=== PATIENT | male | born 1960 | race Caucasian/White ===

== ENCOUNTER 2023-10-06 18:51 | Inpatient (IN) | payer OTHER, SELFPAY ==
[2023-10-06] VITALS (13 sets, daily range): BP systolic 100–137; BP diastolic 59–82; BMI 23.1; BMI 22.6
--- NOTE | 2023-10-06 14:45 | ED.GENMED ---
History of Present Illness
General
Chief Complaint: Abdominal Symptoms
Source: patient and spouse
Exam Limitations: none
Time Seen by Provider: 10/06/23 14:05
Nursing documentation reviewed up to this point in time: agreed with
Travel History
Have you had any contact with someone who has COVID-19?: No
Do you have any symptoms of coronavirus? Fever > 100 degrees, chills, cough, shortness of breath, sore throat, loss of taste or smell, muscle aches, or headache?: No
History of Present Illness
History of Present Illness:
The patient is a 63-year-old man with a past medical history of metastatic lung cancer. His reports that he has not had recent chemo but had a new medication given to him by infusion during the beginning of this week. She reports that over
the last 2 days, his doctors report he is become anemic and they are not sure why. In addition, she reports he is not functioning well at home and has had multiple episodes of vomiting and diarrhea. In addition, she reports he has had lower
abdominal pain. At this time, patient reports that he has no abdominal pain at all. He does report mild nausea. They deny fever, chest pain or shortness of breath.
I spoke to patient's oncologist from [place] who reports that they are worried about an upper GI bleed. He reports that his describes coffee-ground emesis
Past History
Past History
ED Past Medical History: Cancer, HTN and Hypercholesterolemia
ED Past Surgical History: Other
Social History
Tobacco: Other
Alcohol: Other
Drug: None
Personal:
Living: with family
Employment: Other
Family History
Family History: Other
Review of Systems
Review of Systems
Allergies reviewed?: Yes
All Other Systems: ROS reviewed and negative except as documented in HPI and ROS
Constitutional: Reports fatigue
EENT: Reports no symptoms
Respiratory: Reports no symptoms
Cardiac: Reports no symptoms
ABD/GI: Reports abdominal pain, nausea, vomiting and diarrhea
: Reports no symptoms
Musculoskeletal: Reports no symptoms
Skin: Reports no symptoms
Neurological: Reports no symptoms
Endocrine: Reports no symptoms
Hematologic/Lymphatic: Reports no symptoms
Psychiatric: Reports no symptoms
Phy Exam
Physical Exam
Physical Exam:
Physical Exam
General: Chronically ill-appearing. Pale
Neck: supple. no meningeal signs. normal psoterior pharynx
Heart: s1/s2 regular rate and rhythm,
Lungs: no acute respiratory distress. clear bilaterally
Abdomen: normal bowel sounds. not tender. no CVAT. Abdomen is soft and nondistended and nontender throughout. On rectal exam, stool appears brown and is trace positive
Neuro: alert and oriented. no focal neurological deficits
Skin: no rash
Psychiatric: well kept. interactive and cooperative
Extremities: no edema. no calf tenderness. negative homans. good distal pulses
Course
Orders/Labs/Results
Orders:
Orders
10/06/23 14:41
IV Insert/Care/Rem.- Treatment PRN
10/06/23 14:44
Ondansetron Injectable [Zofran] 4 mg IV NOW STA
10/06/23 14:53
Electrocardiogram (*1) Urgent
Reason for Study: Fatigue / Weakness
EKG- Treatment ONCE
10/06/23 Dinner
Clear Liquid
10/06/23 15:11
Type+Screen Urgent
Complete Blood Count/With Diff Urgent
Comprehensive Metabolic Panel Urgent
Lactic Acid Urgent
Lipase Urgent
PTT Urgent
Prothrombin Time Urgent
10/06/23 15:20
HYDROmorphone [Dilaudid] 1 mg IV NOW STA
10/06/23 16:17
* Blood Bank Products Urgent
[facility] Orders: Anand
Blood Bank Products: *Packed RBC Leuko(PRBC's)
Quantity: 1
Transfuse Today: Yes
Reason: Anemia
IV Insert/Care/Rem.- Treatment PRN
10/06/23 16:18
Pantoprazole [Protonix IV] 80 mg IV NOW STA
10/06/23 16:19
Pantoprazole 80 mg/100 ml Nss [Protonix] 80 mg in 100 ml IV NOW
10/06/23 16:52
Admit/Transfer Patient As Directed
Co-Sign Provider:
Level of Care: Inpatient admission
Assign to:: Medical/Surgical
Physician / Group: xiao
Diagnosis: UGIB
Reason for Hospitalization: UGIB
Expected length of stay greater than two midnights?: Yes
ELOS- Estimated Length of Stay in days: 2
I certify the patient meets the requirements for IP care: Yes
Code Status As Directed
Resuscitation Status: Do not resuscitate
Reached after discussion with pt or family/Healthcare POA: Yes
10/06/23 16:54
DNR Bracelet Application ONCE
10/06/23 18:32
Urinalysis Reflex To Culture Urgent
10/06/23 20:00
0.9% Sodium Chloride [Nss (Preservative Free)] 10 ml IV BID
Pantoprazole [Protonix IV] 40 mg IV BID
Abnormal Lab Results
10/06/23
15:11
WBC 12.8 H 10^3/uL
(4.8-10.8)
RBC 2.37 L 10^6/uL
(4.70-6.10)
Hgb 7.9 L g/dL
(13.0-18.0)
Hct 23.0 L %
(39.0-52.0)
MCV 97.0 H fL
(80.0-94.0)
MCH 33.3 H pg
(27.0-31.0)
RDW 15.9 H %
(11.5-14.5)
Abs Immat Gran (auto) 0.1 H 10^3/uL
(0-0.05)
Absolute Neuts (auto) 11.9 H 10^3/uL
(1.4-6.5)
Absolute Lymphs (auto) 0.2 L 10^3/uL
(1.2-3.4)
Immature Gran % 0.6 H %
(0-0.5)
Neutrophils % 93.2 H %
(42.2-75.2)
Lymphocytes % 1.2 L %
(20.5-51.1)
APTT 23.3 L Sec
(23.4-35.0)
Sodium 130 L mmol/L
(135-145)
BUN 21 H mg/dl
(9-20)
Lactic Acid 2.1 H mmol/L
(0.7-2.0)
Calcium 8.0 L mg/dl
(8.4-10.2)
Total Protein 5.2 L g/dl
(6.3-8.2)
Albumin 2.9 L g/dl
(3.5-5.0)
Crossmatch IS Only See Detail
10/06/23 15:11
10/06/23 15:11
Vital Signs
Initial and Last Documented VS:
Initial Vital Signs
Temp Pulse Resp BP Pulse Ox
98.5 F 110 20 105/82 100
10/06/23 12:50 10/06/23 12:50 10/06/23 12:50 10/06/23 12:50 10/06/23 12:50
Last Documented Vital Signs
Temp Pulse Resp BP Pulse Ox
98.2 F 79 14 102/68 100
10/06/23 18:53 10/06/23 18:53 10/06/23 18:53 10/06/23 18:53 10/06/23 14:15
MDM/Problems Addressed
Differential Diagnosis Includes:
Acute blood loss anemia, dehydration, UTI
MDM/Problems Addressed:
Patient presents with acute anemia on blood work on the last 2 days, as well as acute on chronic fatigue, and acute nausea, vomiting and diarrhea
Chronic conditions affecting care:
Stage IV lung cancer
*Pulse Oximetry
Patient hypoxic: no
*EKG
Interpreted by ED Provider?: Yes
Interpretation: abnormal
Comparison EKG: no comparison EKG present
Rate: normal
Rhythm: sinus
[place]: normal axis
Interval: normal interval
QRS Pattern: normal QRS and right bundle branch block
Ischemia: non-specific ST changes
*Online Marketing Coordinator Interpretation
Rate: normal
Interpretation: normal
Rhythm: sinus
*Critical Care Note
Total Time (30-74mins, 75-104mins- exclusive of procedures): 35 min
comment:
35 minutes of critical care given to the patient including frequent reassessments of his nausea, reviewing his blood work, speaking to his oncologist at [place], speaking about the blood transfusion as well as recurrently speaking to his
Data Reviewed
Source: patient and other (Patient's oncologist from [place] over the phone)
Update Note
Update Note:
4:18 PM patient's gave written consent and understands risks and benefits of blood transfusion.
ED Attending Note
-
Portions of this chart may have been created with voice recognition software.� Occasional wrong word or��sound alike� substitutions may have occurred due to the inherent limitations of voice recognition software.
Discharge Plan
Departure
Patient Disposition: Admit
Date of Disposition: 10/06/23
Time of Disposition: 15:56
Admit to: Med/Surg
Presentation/result/management discussed w/ accepting MD/DO: Hospitalist
Patient with high blood pressure during this ER visit?: Yes
Condition: Good
Discharge Problem:
Acute anemia, Abdominal pain, Nausea & vomiting, Adult failure to thrive, Acute dehydration
Interventions
Interventions:
*Risk Screen - Suicide Last Done: 10/06/23 12:50
*General Assessment Last Done: 10/06/23 12:50
*Neglect/Abuse Screening Last Done: 10/06/23 15:14
*ED COVID-19 Vaccine History Last Done: 10/06/23 12:50
UP-Nuaotw-Brhsemecqh Assessment Last Done: 10/06/23 18:50
[2023-10-06] MEDS: ZOFRAN 4 MG IV (15:11)
[2023-10-06 15:24] LABS: % Basophils 0.1 % (0-2); % Eosinophils 0.1 % (0-6); % Immature Granulocytes 0.6 % (0-0.5); % Lymphocytes 1.2 % (20.5-51.1); % Monocytes 4.8 % (1.7-9.3); % Neutrophils 93.2 % (42.2-75.2); Absolute Immature Granulocytes 0.1 10^3/uL (0-0.05); Absolute Lymphocytes 0.2 10^3/uL (1.2-3.4); Absolute Monocytes 0.6 10^3/uL (0.1-0.6); Absolute Neutrophils 11.9 10^3/uL (1.4-6.5); Hemoglobin 7.9 g/dL (13.0-18.0); Mean Corp Hgb Conc. 34.3 g/dL (33.0-37.0); Mean Corpuscular Hgb 33.3 pg (27.0-31.0); Mean Platelet Volume 9.7 fL (7.4-10.4); Nucleated Red Blood Cells % 0 % (-); Platelet Count 203 10^3/uL (130-400); Red Blood Cell Count 2.37 10^6/uL (4.70-6.10); Red Cell Dist. Width 15.9 % (11.5-14.5); White Blood Cell Count 12.8 10^3/uL (4.8-10.8)
[2023-10-06] MEDS: DILAUDID 1 MG IV (15:27)
[2023-10-06 15:34] LABS: Lactic Acid 2.1 mmol/L (0.7-2.0)
[2023-10-06 15:35] LABS: ALT (SGPT) 45 U/L (0-50); AST (SGOT) 25 U/L (17-59); Albumin 2.9 g/dl (3.5-5.0); Alkaline Phosphatase 85 U/L (38-126); Blood Urea Nitrogen 21 mg/dl (9-20); Carbon Dioxide 26 mmol/L (22-30); Chloride 103 mmol/L (98-107); Estimated Creatinine Clearance 93 ml/min; Glucose 79 mg/dl (70-99); Lipase 25 U/L (23-300); Potassium 3.7 mmol/L (3.5-5.1); Sodium 130 mmol/L (135-145); Total Bilirubin 0.4 mg/dl (0.2-1.3); Total Protein 5.2 g/dl (6.3-8.2); eGFR > 60.00
[2023-10-06 15:36] LABS: APTT 23.3 Sec (23.4-35.0); INR 1.01; PT 13.1 Sec (11.4-14.6)
--- NOTE | 2023-10-06 17:00 | HPS.HSE ---
Addendum entered and electronically signed by Joseph Ibarra MD 10/06/23 18:34:
Check urinalysis due to burning with urination.
Addendum entered and electronically signed by Joseph Ibarra MD 10/06/23 18:34:
Patient on clears. Restarted senna.
Original Note:
Family Physician
-
Family Physician: * NONE
Chief Complaint
-
cofree ground vomiting
History of Present Illness
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 Patient is usually constipated and his
last bowel movement 3 days ago. He has chronic abdominal pain due to adrenal metastases but today the pain was worse. Currently he denies any abdominal pain. He denies any chest pain or acid reflux or shortness of breath.
Patient has a history of lung cancer diagnosed several years ago with metastases to spine, bone, brain and adrenal glands. He has received radiation to all these locations previously. He has most recently received a single dose of radiation to his
back a few days ago. He has received radiation to his right adrenal gland within the past year.
He is currently on immunotherapy infusion which he received last week at [facility]. There was consideration to admit him at that time due to anemia for blood transfusion. There was plan for patient to have blood transfusion.
He smokes a few cigarettes a day at this point. He denies any alcohol use. No marijuana use.
Medical History
Past Medical History
Past Medical History: Reports Other ( stage IV lung cancer with metastases to spine, bone, brain, adrenal glands and back, hypertension, hypercholesteremia)
Past Surgical History: Reports None
Social History
Tobacco: Smoker
Alcohol: None
Drug: None
Family History
Family History: Not pertinent
Allergies / Home Medications
Allergies reflects when Allergies were last updated in [facility].
Home Medications with original date entered in [facility]
Allergy/Medication List:
Allergies
Allergy/AdvReac Type Severity Reaction Status Date / Time
IV contrast Allergy Unknown Uncoded 10/06/23 12:50
Home Medications
acetaminophen 325 mg tablet (Tylenol) 325 mg PO Q4HPRN PRN mild pain 10/06/23
amivantamab-vmjw 50 mg/mL intravenous solution (Rybrevant) 7,500 mg IV Q3W 10/06/23
hydrocortisone 20 mg tablet 20 mg PO QPM 10/06/23
hydrocortisone 20 mg tablet 40 mg PO DAILY 10/06/23
lactulose 10 gram/15 mL oral solution 10 g PO DAILYPRN PRN constipation 10/06/23
magnesium oxide 400 mg PO BID 10/06/23
oxycodone 15 mg tablet 15 mg PO Q4HPRN PRN severe pains 10/06/23
pregabalin 50 mg capsule (Lyrica) 50 mg PO BIDPRN PRN severe pain 10/06/23
sennosides 8.6 mg tablet (senna) 8.6 mg PO DAILY 10/06/23
testosterone 50 mg/mL intramuscular solution 80 mg IM FR 10/06/23
Review of Systems
-
History Source: Patient
A 12 point ROS was completed and negative except as noted: Yes
Constitutional: Reports No Symptoms
EENT: Reports No Symptoms
Respiratory: Reports No Symptoms
Cardiac: Reports No Symptoms
Abdomen/GI: Reports See HPI
: Reports No Symptoms
Musculoskeletal: Reports No Symptoms
Skin: Reports No Symptoms
Neurological: Reports No Symptoms
Endocrine: Reports No Symptoms
Hematologic/Lymphatic: Reports No Symptoms
Psych: Reports No Symptoms
Physical Exam
Vital Signs
Vital Signs
Temp Pulse Resp BP Pulse Ox
98.5 F 110 20 105/82 100
10/06/23 12:50 10/06/23 12:50 10/06/23 12:50 10/06/23 12:50 10/06/23 12:50
Physical Exam
General: Well Developed, Well Nourished and No Apparent Distress
HEENT: NormoCephalic, Moist mucous membranes and Atraumatic
Respiratory: Clear
Cardiac: S1/S2 and Regular Rhythm; No Murmur or Rub
GI: Soft, Non Tender, Non Distended and Normal Bowel Sounds; No Organomegaly
Rectal: Deferred by Provider
Musculoskeletal: No Clubbing, No Cyanosis and No Edema
Skin: No Rash
Neuro: Nonfocal/grossly intact
Laboratory Results
-
10/06/23 15:11
10/06/23 15:11
Laboratory Results
PT 13.1 Sec (11.4-14.6) 10/06/23 15:11
INR 1.01 10/06/23 15:11
APTT 23.3 Sec (23.4-35.0) L 10/06/23 15:11
Lactic Acid 2.1 mmol/L (0.7-2.0) H 10/06/23 15:11
Total Bilirubin 0.4 mg/dl (0.2-1.3) 10/06/23 15:11
AST 25 U/L (17-59) 10/06/23 15:11
ALT 45 U/L (0-50) 10/06/23 15:11
Alkaline Phosphatase 85 U/L (38-126) 10/06/23 15:11
Lipase 25 U/L (23-300) 10/06/23 15:11
Data Reviewed
-
Lab Data: Labs Reviewed by me
Old Records: Reviewed
Impression/Plan
-
IMPRESSION:
PLAN:
# Acute anemia suspect acute blood loss anemia secondary to upper GI bleeding
-Hemoglobin 7.9 from reportedly 10 within past weeks
-heme occult trace positive for blood
-Sinus tachycardia
-N.p.o.
-1 unit of blood
-Protonix drip
-GI consulted
# Hyponatremia secondary to poor p.o. intake/GI loss/SIADH
-Continue to monitor
Stage IV lung cancer with metastasis to spine, brain, adrenal glands, back status post radiation
-Recently underwent radiation to back
-Patient currently on immunotherapy at [facility]
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
-Blood pressure normal at this time
-Increase hydrocortisone to 80 mg in the day, 40 mg at night, make require further stress dose steroids
Chronic constipation
-hold senna
Chronic pain secondary to malignancy
-Continue methadone, oxycodone, pregabalin
Prior history of hypertension
-No longer on hypertensive medication
Hypercholesterolemia
Active smoker
-Smokes 1 to 2 cigarettes a day
DNR/DNI
DVT prophylaxis�SCD
N.p.o.
--- NOTE | 2023-10-06 18:14 | CON.GI ---
Consultation
-
Date/Time Consultation Requested: 10/06/2023
Date/Time Consultation Performed: 10/06/2023
Performing Provider: Erwin Martinez
Reason for Consultation: anemia, concern for UGIB
Medical History
Chief Complaint / HPI
Chief Complaint: anemia, concern for UGIB
History of Present Illness:
The patient is a 63-year-old male with h/o stage IV lung cancer with metastases to spine, bone, brain, adrenal glands and back, HTN, hypercholesteremia who p/w multiple vomiting and diarrhea.� Patient had acute onset of multiple vomiting today. His
initial vomiting was nonbloody. He vomited about 7-10 times which became brownish resembling possible coffee-ground toward the end. During his vomiting he also had multiple episodes of diarrhea as per . He denies NSAID use. No prior EGD. He
received multiple radiation therapy for his metastatic lung cancer. Currently he is on immunotherapy infusion, being treated at [facility].
Past Medical History
Past Medical History: Cancer, HTN and Other
Past Surgical History: None
Social History
Tobacco: Smoker
Alcohol: None
Family History
Family History: Reviewed & Not Pertinent
Allergies / Home Medications
Allergy/AdvReac Type Severity Reaction Status Date / Time
IV contrast Allergy Unknown Uncoded 10/06/23 12:50
Medication Instructions Recorded
acetaminophen 325 mg tablet 325 mg PO Q4HPRN PRN mild pain 10/06/23
(Tylenol)
amivantamab-vmjw 50 mg/mL 7,500 mg IV Q3W 10/06/23
intravenous solution (Rybrevant)
hydrocortisone 20 mg tablet 20 mg PO QPM 10/06/23
hydrocortisone 20 mg tablet 40 mg PO DAILY 10/06/23
lactulose 10 gram/15 mL oral 10 g PO DAILYPRN PRN constipation 10/06/23
solution
magnesium oxide 400 mg PO BID 10/06/23
oxycodone 15 mg tablet 15 mg PO Q4HPRN PRN severe pains 10/06/23
pregabalin 50 mg capsule (Lyrica) 50 mg PO BIDPRN PRN severe pain 10/06/23
sennosides 8.6 mg tablet (senna) 8.6 mg PO DAILY 10/06/23
testosterone 50 mg/mL 80 mg IM FR 10/06/23
intramuscular solution
Review of Systems
Vital Signs
Temp Pulse Resp BP Pulse Ox
98.5 F 76 11 106/65 100
10/06/23 12:50 10/06/23 17:30 10/06/23 17:30 10/06/23 17:00 10/06/23 14:15
Physical Exam
Exam
General: Well Developed and Well Nourished
HEENT: Normocephalic
Respiratory: Clear
Cardiac: S1/S2
GI: Soft, Non Tender and Non Distended
Results
WBC 12.8 10^3/uL (4.8-10.8) H 10/06/23 15:11
Hgb 7.9 g/dL (13.0-18.0) L 10/06/23 15:11
Hct 23.0 % (39.0-52.0) L 10/06/23 15:11
MCV 97.0 fL (80.0-94.0) H 10/06/23 15:11
Plt Count 203 10^3/uL (130-400) 10/06/23 15:11
Absolute Neuts (auto) 11.9 10^3/uL (1.4-6.5) H 10/06/23 15:11
PT 13.1 Sec (11.4-14.6) 10/06/23 15:11
INR 1.01 10/06/23 15:11
APTT 23.3 Sec (23.4-35.0) L 10/06/23 15:11
Sodium 130 mmol/L (135-145) L 10/06/23 15:11
Potassium 3.7 mmol/L (3.5-5.1) 10/06/23 15:11
Chloride 103 mmol/L (98-107) 10/06/23 15:11
Carbon Dioxide 26 mmol/L (22-30) 10/06/23 15:11
BUN 21 mg/dl (9-20) H 10/06/23 15:11
Creatinine 0.8 mg/dL (0.7-1.3) 10/06/23 15:
Calcium 8.0 mg/dl (8.4-10.2) L 10/06/23 15:
Total Bilirubin 0.4 mg/dl (0.2-1.3) 10/06/23 15:
AST 25 U/L (17-59) 10/06/23 15:11
ALT 45 U/L (0-50) 10/06/23 15:11
Alkaline Phosphatase 85 U/L (38-126) 10/06/23 15:
Lipase 25 U/L (23-300) 10/06/23 15:11
Diagnostic Image Results:
Prior GI Procedures:
EGD:
Colonoscopy:
Assessment / Plan
-
The patient is a 63-year-old male with h/o stage IV lung cancer with metastases to spine, bone, brain, adrenal glands and back, HTN, hypercholesteremia who p/w multiple vomiting and diarrhea.
Impression / Rec:
1. Vomiting, possible coffee ground emesis - had acute onset of non-bloody vomitus, which after multiple vomiting became brownish resembling coffee ground. No hematemesis. No NSAIDs use. This is most consistent with MW tear. Hemodynamically
stable, Hgb is 7.9 on admission, which is close to his baseline (per past several weeks) as per . Given his wide metastatic lung ca, endo eval to r/o gastric metastatic lesion is reasonable. Pt was started on PPI infusion, would change this to
protonix 40 mg IV BID. CLD for now. Plan for EGD Monday. Monitor Hgb.
Total Time Spent with Patient (in minutes): 55
-
-
Thank you for consultation and allowing me to participate in the patient's care. Please call the campaign consultant GI physician during the after hours with any questions or concerns.
[2023-10-06 20:52] LABS: Iron 33 ug/dl (49-181)
[2023-10-06 21:18] LABS: Percent Saturation 13 % (20-50); Total Iron Binding Capacity 246 ug/dl (261-462)
[2023-10-06] MEDS: ROXICODONE 15 MG PO (22:10)
[2023-10-06] MEDS: PROTONIX IV 40 MG IV (22:11)
[2023-10-06] MEDS: NSS (PRESERVATIVE FREE) 10 ML IV (22:11)
[2023-10-06] MEDS: HYDROCORTONE/CORTEF 40 MG PO (22:12)
[2023-10-06] MEDS: MAG-TAB SR 84 MG PO (22:12)
[2023-10-06 22:41] LABS: Folate 7.2 ng/ml (2.76-20); Vitamin B12 533 pg/ml (239-931)
[2023-10-06 23:22] LABS: Urine Albumin Negative (Neg - Trace); Urine Bilirubin Negative (Negative); Urine Character Clear (Clear); Urine Color Yellow; Urine Glucose Negative (Negative); Urine Ketone Negative (Negative); Urine Leukocyte Negative (Negative); Urine Nitrite Negative (Negative); Urine Occult Blood Negative (Negative); Urine Urobilinogen Negative (Neg - 1+)
[2023-10-07] MEDS: DOLOPHINE 10 MG PO ×2 (00:10→21:55)
--- NOTE | 2023-10-07 00:31 | PTCARENOTE ---
Patient arrived from the ED via stretcher at approximately 2014. Patient ambulated from stretcher to bed x1 assist. Patient AAOx3, forgetful. Patient w/ blood running upon arrival to unit - see TAR for completion of blood administration. VSS as
documented. Assessment as documented. Patient oriented to room. Bed in lowest position. Call shen within reach.
[2023-10-07] MEDS: ROXICODONE 15 MG PO ×2 (06:05→15:35)
[2023-10-07 07:30] VITALS: BP 111/71
[2023-10-07] MEDS: HYDROCORTONE/CORTEF 80 MG PO (08:25)
[2023-10-07] MEDS: DOLOPHINE 20 MG PO (08:25)
[2023-10-07] MEDS: MAG-TAB SR 84 MG PO ×2 (08:25→21:53)
[2023-10-07] MEDS: NSS (PRESERVATIVE FREE) 10 ML IV ×2 (08:25→21:54)
[2023-10-07] MEDS: SENOKOT 8.59999999999999964 MG PO (08:25)
[2023-10-07] MEDS: PROTONIX IV 40 MG IV ×2 (08:26→21:54)
[2023-10-07 08:43] LABS: % Eosinophils 0.4 % (0-6); % Immature Granulocytes 0.2 % (0-0.5); % Lymphocytes 3.1 % (20.5-51.1); % Monocytes 5.6 % (1.7-9.3); % Neutrophils 90.7 % (42.2-75.2); Absolute Lymphocytes 0.2 10^3/uL (1.2-3.4); Absolute Monocytes 0.3 10^3/uL (0.1-0.6); Absolute Neutrophils 4.7 10^3/uL (1.4-6.5); Hematocrit 24.4 % (39.0-52.0); Hemoglobin 8.3 g/dL (13.0-18.0); Mean Corpuscular Hgb 33.3 pg (27.0-31.0); Nucleated Red Blood Cells % 0.4 % (-); Platelet Count 164 10^3/uL (130-400); Red Blood Cell Count 2.49 10^6/uL (4.70-6.10); Red Cell Dist. Width 16.6 % (11.5-14.5); White Blood Cell Count 5.2 10^3/uL (4.8-10.8)
[2023-10-07 08:46] LABS: Lactic Acid 0.7 mmol/L (0.7-2.0)
[2023-10-07 09:48] LABS: ALT (SGPT) 42 U/L (0-50); AST (SGOT) 22 U/L (17-59); Albumin 2.6 g/dl (3.5-5.0); Alkaline Phosphatase 73 U/L (38-126); Blood Urea Nitrogen 23 mg/dl (9-20); Carbon Dioxide 28 mmol/L (22-30); Chloride 98 mmol/L (98-107); Estimated Creatinine Clearance 105 ml/min; Glucose 73 mg/dl (70-99); Potassium 4.1 mmol/L (3.5-5.1); Sodium 130 mmol/L (135-145); Total Bilirubin 0.5 mg/dl (0.2-1.3); Total Protein 4.8 g/dl (6.3-8.2); eGFR > 60.00
--- NOTE | 2023-10-07 10:26 | W.PN.HOSP.TC ---
Today's Communication/Plan
-
monitor hbg
diet per GI
continue IV PPI
for EGD mon
Assessment / Plan
Assessment / Plan
# Acute anemia suspect acute blood loss anemia secondary to upper GI bleeding
Possible Radha-Harrison tear versus other
-Hemoglobin 7.9 from reportedly 10 within past weeks in ER
-heme occult trace positive for blood
-S/p 1 unit PRBC, continue monitoring hemoglobin
-No further episode of nausea and vomiting overnight
-GI evaluated and patient started on clear liquid diet. Possible medical steroid versus other causes need to rule out with underlying metastatic lung cancer.
-Patient on IV Protonix twice daily. Continue
# Hyponatremia
-Suspected euvolemic with ADH excess with underlying malignancy and bleed problem
-Continue to monitor
#Stage IV lung cancer with metastasis to spine, brain, adrenal glands, back status post radiation
-Recently underwent radiation to back
-Patient currently on immunotherapy at [facility]
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
-Blood pressure normal at this time
-Increase hydrocortisone to 80 mg in the day, 40 mg at night, make require further stress dose steroids
#Chronic constipation
-hold senna
#Chronic pain secondary to malignancy
-Continue methadone, oxycodone, pregabalin
#Prior history of hypertension
-No longer on hypertensive medication
#Hypercholesterolemia
#Active smoker
-Smokes 1 to 2 cigarettes a day
DNR/DNI
DVT prophylaxis�SCD
Patient requesting to advance diet. Discussed with GI PA
Anticipated Discharge: > 48 hours
Subjective/Interval History
-
Date of Service: October 07, 2023
Resting comfortably in bed
Denies any new nausea or vomiting overnight
Not voicing any complains
Objective Data
-
Labs:
Laboratory Results
10/07/23
08:23
WBC 5.2
Hgb 8.3 L
Hct 24.4 L
Plt Count 164
Sodium 130 L
Potassium 4.1
Chloride 98
Carbon Dioxide 28
BUN 23 H
Creatinine 0.7
Glucose 73
Calcium 8.0 L
Total Bilirubin 0.5
AST 22
ALT 42
Alkaline Phosphatase 73
Vital Signs:
Vital Signs
Temp Pulse Resp BP Pulse Ox
97.8 F 68 16 111/71 100
10/07/23 07:30 10/07/23 07:30 10/07/23 07:30 10/07/23 07:30 10/07/23 07:30
I&O
10/06/23 10/07/23 10/08/23
06:59 06:59 07:59
Intake Total 250 / 250
Balance 250 / 250
Review of Systems
-
Respiratory: Reports No Symptoms
Cardiac: Reports No Symptoms
Abdomen/GI: Reports No Symptoms
Physical Exam
-
General: Appears Chronically Ill; Negative Appears in Distress
HEENT: Oxygen
Respiratory: Clear to Auscultation and Other (Port a cath in place)
Cardiac: Regular Rhythm and S1/S2; Negative Murmur
GI: Soft and Nontender
Neuro: Awake, Alert and Oriented
--- NOTE | 2023-10-07 10:42 | W.PN.GI.CBS2 ---
Today's Communication / Plan
-
ok for reg diet, r/o infectious diarrhea, egd Monday
Assessment / Plan
-
The patient is a 63-year-old male with h/o stage IV lung cancer with metastases to spine, bone, brain, adrenal glands and back, HTN, hypercholesteremia who p/w multiple vomiting and diarrhea. Had acute onset of non-bloody vomitus, which after
multiple vomiting became brownish resembling coffee ground. No hematemesis. No NSAIDs use. This is most consistent with MW tear. Hemodynamically stable, Hgb is 7.9 on admission, which is close to his baseline (per past several weeks) as per
. Given his wide metastatic lung ca, endo eval to r/o gastric metastatic lesion is reasonable.
No further vomiting. Had few episodes of watery diarrhea, no melena. Hgb stable 8.3 today. Will advance diet to regular. R/o infectious etiology for diarrhea. Continue with PPI IV. EGD Monday.
Total Time Spent with Patient (in minutes): 35
Subjective
Subjective
Date of Service: October 07, 2023
No further vomiting, having some diarrhea
Objective
Data Reviewed
Laboratory Data:
Laboratory Results
10/07/23 08:23
10/07/23 08:23
Laboratory Results
PT 13.1 Sec (11.4-14.6) 10/06/23 15:11
INR 1.01 10/06/23 15:11
APTT 23.3 Sec (23.4-35.0) L 10/06/23 15:11
Total Bilirubin 0.5 mg/dl (0.2-1.3) 10/07/23 08:23
AST 22 U/L (17-59) 10/07/23 08:23
ALT 42 U/L (0-50) 10/07/23 08:23
Alkaline Phosphatase 73 U/L (38-126) 10/07/23 08:23
Lipase 25 U/L (23-300) 10/06/23 15:11
Vital Signs and I&O:
Vital Signs
Temp Pulse Resp BP Pulse Ox
97.8 F 68 16 111/71 100
10/07/23 07:30 10/07/23 07:30 10/07/23 07:30 10/07/23 07:30 10/07/23 07:30
I&O
10/06/23 10/07/23 10/08/23
06:59 06:59 07:59
Intake Total 250 / 250
Balance 250 / 250
--- NOTE | 2023-10-07 13:26 | CM ---
CM following re: discharge planning.
Reviewed pt's chart, met with pt
Pt is a 63 year old male, admitted with primary dx of GI Bleed.
Pt reports he lives with spouse 2SH, 2 steps to enter, has 2 supportive children. 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 Pt stated he 'tries to go back to work and tries to drive'.
PCP: pt stated he left his PCP because PCP does not prescribe pain meds and he left pain management MD because he did not prescribe pain meds. Pt stated he does not have PCP and looking for to have one who will be able to prescribe pain meds.
Pharamcy: [facility]
D/C plan: home with anticipated no needs. Spouse to transport at discharge.
CM will follow with discharge plan updates as hospitalization progresses
[2023-10-07 15:20] VITALS: BP 105/64
--- NOTE | 2023-10-07 15:32 | PTCARENOTE ---
Patient received his missed dose of testosterone IM injection, from home.
[2023-10-07] MEDS: ROXICODONE 30 MG PO (18:14)
[2023-10-07] MEDS: HYDROCORTONE/CORTEF 40 MG PO (18:15)
[2023-10-07 23:30] VITALS: BP 114/65
[2023-10-08] MEDS: ROXICODONE 30 MG PO (00:10)
[2023-10-08 06:14] LABS: Hematocrit 25.8 % (39.0-52.0); Hemoglobin 8.8 g/dL (13.0-18.0); Mean Corp Hgb Conc. 34.1 g/dL (33.0-37.0); Mean Corpuscular Hgb 32.2 pg (27.0-31.0); Mean Corpuscular Volume 94.5 fL (80.0-94.0); Mean Platelet Volume 9.6 fL (7.4-10.4); Platelet Count 177 10^3/uL (130-400); Red Blood Cell Count 2.73 10^6/uL (4.70-6.10); White Blood Cell Count 6.7 10^3/uL (4.8-10.8)
[2023-10-08 07:05] VITALS: BP 119/81
[2023-10-08 07:45] LABS: Blood Urea Nitrogen 18 mg/dl (9-20); Calcium 7.9 mg/dl (8.4-10.2); Carbon Dioxide 26 mmol/L (22-30); Chloride 101 mmol/L (98-107); Estimated Creatinine Clearance 105 ml/min; Glucose 82 mg/dl (70-99); Potassium 4.1 mmol/L (3.5-5.1); Sodium 128 mmol/L (135-145); eGFR > 60.00
[2023-10-08] MEDS: NSS (PRESERVATIVE FREE) 10 ML IV ×2 (08:52→19:52)
[2023-10-08] MEDS: MAG-TAB SR 84 MG PO ×2 (08:52→19:53)
[2023-10-08] MEDS: PROTONIX IV 40 MG IV ×2 (08:52→19:53)
[2023-10-08] MEDS: HYDROCORTONE/CORTEF 80 MG PO (08:52)
[2023-10-08] MEDS: SENOKOT 8.59999999999999964 MG PO (08:52)
[2023-10-08] MEDS: DOLOPHINE 20 MG PO (08:53)
--- NOTE | 2023-10-08 11:05 | W.PN.HOSP.TC ---
Today's Communication/Plan
-
adjust pain meds
check urine sodium/osm
monitor hbg
Assessment / Plan
Assessment / Plan
# Acute anemia suspect acute blood loss anemia secondary to upper GI bleeding
Possible Radha-Harrison tear versus other
-Hemoglobin 7.9 from reportedly 10 within past weeks in ER
-heme occult trace positive for blood
-S/p 1 unit PRBC, continue monitoring hemoglobin
-No further episode of nausea and vomiting overnight
-GI evaluated and patient started on clear liquid diet. Possible medical steroid versus other causes need to rule out with underlying metastatic lung cancer.
-Patient on IV Protonix twice daily. Continue
# Hyponatremia
-Suspected euvolemic with ADH excess with underlying malignancy and bleed problem
-Na down to 128 today, check urine na/osm
-fluid restriction ordered
-if trends down further will need samsca dose.
# Acute toxic metabolic encephalopathy
-Likely from medication and hyponatremia related
-Hold Lyrica. Dose of oxycodone decreased to 20 mg every 4 hours.
-Family is concerned about anxiety, patient not able to handle Ativan. Giving Xanax 0.25 mg every 8 hour
-Patient also metastatic brain disease, no official report available although per spouse recent outpt MRI showed stable findings
#Stage IV lung cancer with metastasis to spine, brain, adrenal glands, back status post radiation
-Recently underwent radiation to back
-Patient currently on immunotherapy at [place], discussed with spouse who is planning to call [facility] physicians tomorrow to discuss prognosis.
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
-Blood pressure normal at this time
-Increase hydrocortisone to 80 mg in the day, 40 mg at night, make require further stress dose steroids
#Chronic constipation
-hold senna
#Chronic pain secondary to malignancy
-Continue methadone, oxycodone, pregabalin
#Prior history of hypertension
-No longer on hypertensive medication
#Hypercholesterolemia
#Active smoker
-Smokes 1 to 2 cigarettes a day
DNR/DNI
DVT prophylaxis�SCD
Discussed with spouse possible need of repeat brain imaging continued to have multiple confusion. Adjusting medication as above. Patient continues to demand pain medication although not in any visible pain, will try to limit dose. I have
encouraged spouse to talk to [facility] oncologist regarding overall prognosis is I do not have all the information necessary to discuss GOC.
Total time spent : 53 mins
I personally saw and examined the patient.
I have reviewed all diagnostic interpretations and treatment plans as written.
Time includes patient management by me, time spent at the patients bedside, time to review lab and imaging results, discussing patient care, documentation in the medical record, and time spent with the family or caregiver and discussing care plan
with RN/Consultants.
Anticipated Discharge: 24 - 48 hours
Subjective/Interval History
-
Date of Service: October 08, 2023
seen and examined
patient disoriented and no other issues
continues to have pain
Objective Data
-
Labs:
Laboratory Results
10/08/23
06:02
WBC 6.7
Hgb 8.8 L
Hct 25.8 L
Plt Count 177
Sodium 128 L
Potassium 4.1
Chloride 101
Carbon Dioxide 26
BUN 18
Creatinine 0.7
Glucose 82
Calcium 7.9 L
Vital Signs:
Vital Signs
Temp Pulse Resp BP Pulse Ox
97.8 F 86 16 119/81 100
10/08/23 07:05 10/08/23 07:05 10/08/23 07:05 10/08/23 07:05 10/08/23 07:05
I&O
10/07/23 10/08/23 10/09/23
05:59 06:59 06:59
Intake Total
Balance
Review of Systems
-
Respiratory: Reports No Symptoms
Cardiac: Reports No Symptoms
Abdomen/GI: Reports No Symptoms
Physical Exam
-
General: Negative Appears in Distress
HEENT: Oxygen
Respiratory: Clear to Auscultation and Other (Port a cath in place)
Cardiac: Regular Rhythm and S1/S2; Negative Murmur
GI: Soft and Nontender
Neuro: Awake, Alert and No Motor Deficits
[2023-10-08 11:20] VITALS: BMI 22.6
--- NOTE | 2023-10-08 12:43 | W.PN.GI.CBS2 ---
Today's Communication / Plan
-
EGD tomorrow
Assessment / Plan
-
The patient is a 63-year-old male with h/o stage IV lung cancer with metastases to spine, bone, brain, adrenal glands and back, HTN, hypercholesteremia who p/w multiple vomiting and diarrhea. Had acute onset of non-bloody vomitus, which after
multiple vomiting became brownish resembling coffee ground. No hematemesis. No NSAIDs use. This is most consistent with MW tear. Hemodynamically stable, Hgb is 7.9 on admission, which is close to his baseline (per past several weeks) as per
. Given his wide metastatic lung ca, endo eval to r/o gastric metastatic lesion is reasonable.
Tolerating reg diet. Hgb 8.8 today. No BM today. No further vomiting. EGD tomorrow.
Total Time Spent with Patient (in minutes): 35
Subjective
Subjective
Date of Service: October 08, 2023
Diarrhea stopped
Objective
Data Reviewed
Laboratory Data:
Laboratory Results
10/08/23 06:02
10/08/23 06:02
Laboratory Results
PT 13.1 Sec (11.4-14.6) 10/06/23 15:11
INR 1.01 10/06/23 15:11
APTT 23.3 Sec (23.4-35.0) L 10/06/23 15:11
Total Bilirubin 0.5 mg/dl (0.2-1.3) 10/07/23 08:23
AST 22 U/L (17-59) 10/07/23 08:23
ALT 42 U/L (0-50) 10/07/23 08:23
Alkaline Phosphatase 73 U/L (38-126) 10/07/23 08:23
Lipase 25 U/L (23-300) 10/06/23 15:11
Vital Signs and I&O:
Vital Signs
Temp Pulse Resp BP Pulse Ox
97.8 F 86 16 119/81 100
10/08/23 07:05 10/08/23 07:05 10/08/23 07:05 10/08/23 07:05 10/08/23 07:05
I&O
10/07/23 10/08/23 10/09/23
05:59 06:59 06:59
Intake Total
Balance
[2023-10-08] MEDS: ROXICODONE 20 MG PO ×2 (12:58→17:17)
[2023-10-08] MEDS: ALPRAZOLAM ODT 0.25 MG PO (15:00)
[2023-10-08 15:30] VITALS: BP 108/64
[2023-10-08 16:41] LABS: Osmolality Urine 548 mOsm/kg (300-900)
[2023-10-08 16:44] LABS: Urine Sodium 38 mmol/L (30-90)
[2023-10-08] MEDS: HYDROCORTONE/CORTEF 40 MG PO (17:17)
[2023-10-08] MEDS: DOLOPHINE 10 MG PO (21:26)
[2023-10-08 23:14] VITALS: BP 117/69
[2023-10-09 05:38] LABS: Hematocrit 26.9 % (39.0-52.0); Hemoglobin 9.2 g/dL (13.0-18.0); Mean Corp Hgb Conc. 34.2 g/dL (33.0-37.0); Mean Corpuscular Hgb 32.6 pg (27.0-31.0); Mean Corpuscular Volume 95.4 fL (80.0-94.0); Mean Platelet Volume 10.2 fL (7.4-10.4); Platelet Count 174 10^3/uL (130-400); Red Blood Cell Count 2.82 10^6/uL (4.70-6.10); Red Cell Dist. Width 15.2 % (11.5-14.5); White Blood Cell Count 6.3 10^3/uL (4.8-10.8)
[2023-10-09 06:03] LABS: Blood Urea Nitrogen 17 mg/dl (9-20); Calcium 8.3 mg/dl (8.4-10.2); Carbon Dioxide 29 mmol/L (22-30); Chloride 98 mmol/L (98-107); Estimated Creatinine Clearance 105 ml/min; Glucose 89 mg/dl (70-99); Sodium 132 mmol/L (135-145); eGFR > 60.00
[2023-10-09 07:15] VITALS: BP 137/87
[2023-10-09] MEDS: HYDROCORTONE/CORTEF 80 MG PO (07:33)
[2023-10-09] MEDS: PROTONIX IV 40 MG IV (07:33)
[2023-10-09] MEDS: FLUSH (NSS) 1 FLUSH IV (07:33)
[2023-10-09] MEDS: NSS (PRESERVATIVE FREE) 10 ML IV (07:33)
[2023-10-09] MEDS: DOLOPHINE 20 MG PO (07:33)
[2023-10-09] MEDS: SENOKOT 8.59999999999999964 MG PO (07:34)
[2023-10-09] MEDS: MAG-TAB SR 84 MG PO (07:34)
--- NOTE | 2023-10-09 09:07 | W.PN.HOSP.TC ---
Today's Communication/Plan
-
Cleared by GI for discharge today
Assessment / Plan
Assessment / Plan
# Acute anemia suspect acute blood loss anemia secondary to upper GI bleeding
Possible Radha-Harrison tear versus other
-Hemoglobin 7.9 from reportedly 10 within past weeks in ER
-heme occult trace positive for blood
-S/p 1 unit PRBC, hemoglobin improved to 8.3, and is currently 9.2 today
-No further episode of nausea and vomiting overnight
-Currently on Protonix 40 mg IV twice daily
-Status post EGD on 10/08 showing duodenal ulcer with clean base, biopsy, no masses
-Medically stable for discharge on pantoprazole 40 mg twice a day
-No NSAIDs, follow-up with GI at [place]
# Hyponatremia
-Suspected euvolemic with ADH excess with underlying malignancy and bleed problem
-Na 132 today, was 128
-Will discharge on fluid restriction, needs repeat BMP to check sodium level 1 week
# Acute toxic metabolic encephalopathy
-Likely from medication and hyponatremia related
-Hold Lyrica. Dose of oxycodone decreased to 20 mg every 4 hours.
-Family is concerned about anxiety, patient not able to handle Ativan. Giving Xanax 0.25 mg every 8 hour
-Patient also metastatic brain disease, no official report available although per spouse recent outpt MRI showed stable findings
-Resolved today
#Stage IV lung cancer with metastasis to spine, brain, adrenal glands, back status post radiation
-Recently underwent radiation to back
-Patient currently on immunotherapy at [place], discussed with spouse who is planning to call [facility] physicians to discuss prognosis.
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
-Blood pressure normal at this time
-Increased hydrocortisone to 80 mg in the day, 40 mg at night, make require further stress dose steroids
#Chronic constipation
-resume senna upon discharge
#Chronic pain secondary to malignancy
-Continue methadone, oxycodone, pregabalin
#Prior history of hypertension
-No longer on hypertensive medication
#Hypercholesterolemia
#Active smoker
-Smokes 1 to 2 cigarettes a day
DNR/DNI
DVT prophylaxis�SCD
Physical Exam
General: No acute distress
HEENT: Normocephalic, Atraumatic, EOMI, MMM
Respiratory: Clear to Auscultation bilaterally
Cardiac: Normal S1/S2, Regular Rate and Rhythm
GI: Soft, Nontender, Nondistended, Normal Bowel Sounds
Extremities: No Clubbing, Cyanosis, or Edema
Neuro: Nonfocal/Grossly Intact
Psych: Calm, Cooperative
Derm: No Visible lesions
.
Anticipated Discharge: Today
Subjective/Interval History
-
Date of Service: October 09, 2023
Patient denies abdominal pain. No black or bloody stools. No nausea, no vomiting. No lightheadedness no dizziness.
Objective Data
-
Labs:
Laboratory Results
10/09/23
04:58
WBC 6.3
Hgb 9.2 L
Hct 26.9 L
Plt Count 174
Sodium 132 L
Potassium 4.0
Chloride 98
Carbon Dioxide 29
BUN 17
Creatinine 0.7
Glucose 89
Calcium 8.3 L
Vital Signs:
Vital Signs
Temp Pulse Resp BP Pulse Ox
97.8 F 82 16 137/87 100
10/09/23 07:15 10/09/23 07:15 10/09/23 07:15 10/09/23 07:15 10/09/23 07:15
I&O
10/08/23 10/09/23 10/10/23
06:59 06:59 06:59
Intake Total 1200 / 1200
Balance 1200 / 1200
[2023-10-09 10:15] VITALS: BP 125/78; BP 142/82
[2023-10-09 10:18] VITALS: BP 125/78
[2023-10-09 10:30] VITALS: BP 137/91
--- NOTE | 2023-10-09 13:41 | W.DCSUMMARY ---
Discharge Summary
Discharge Data
Date of Admission: 10/06/23
Date of Discharge: 10/09/23
-
Pending Results: No
Hospital Course
Discharge diagnosis:
Acute upper GI bleed
Duodenal ulcer
Hyponatremia due to syndrome of inappropriate ADH secretion
Acute toxic metabolic encephalopathy
Stage IV lung cancer with DISEASE to the spine, brain, adrenal glands, back status post radiation
Radiation-induced adrenal insufficiency
Chronic constipation
Chronic pain with opioid dependency secondary to lung cancer
Cigarette nicotine dependency
Consults: GI
CXR:
There is a right internal jugular Uxtnoe-p-Bjrr catheter in place. Distal tip in the distal third superior vena cava. No pneumothorax.
Linear parenchymal stranding in the left upper lobe, with slight superior retraction of the left hilum, likely related to reported history of lung carcinoma.
The lungs are otherwise clear.
No pleural effusion.
The heart is normal in size. No evidence of congestive heart failure.
10/09/2023 EGD:
�� � The examined esophagus was normal.
�� � No gross lesions were noted in the entire examined stomach.
�� � One cratered duodenal ulcer with a clean ulcer base (Efrain Class III)
�� � was found in the first portion of the duodenum. The lesion was 14 mm in
�� � largest dimension. No obvious mass lesion seen. The edge of ulcer was
�� � biopsied with a cold forceps for histology to rule out possible
�� � metastatic lesion.
�� � The duodenal bulb and second portion of the duodenum were normal.
Hospital course:
63-year-old male with a past medical history of stage IV lung cancer with metastases to spine, bone, brain, adrenal glands and back, adrenal sufficiency, and cigarette nicotine dependency was admitted for 1 episode of bloody emesis. Patient was
seen in conjunction with GI. He was treated with Protonix drip.
His initial hemoglobin was 7.9, He was tachycardic. He was transfused 1 unit of packed red blood cells, his hemoglobin improved to 8.3. He did not have any more episodes of black coffee-ground emesis. His hemoglobin was trended, and increased to
9.2 on the day of discharge.
Patient had an EGD on 10/09/2023, showing a nonbleeding duodenal ulcer that was biopsied. GI recommends pantoprazole 40 mg twice a day. He tolerated his diet.
Patient's hospital course was complicated by acute toxic metabolic encephalopathy. This is likely due to his chronic high dose opioid usage as well as acute on chronic hyponatremia secondary to syndrome of inappropriate ADH secretion due to his
lung cancer. He was treated with a fluid restriction, and his sodium improved to 132 on the day of discharge. He has been instructed to continue with fluid restriction upon discharge. His opioids were slightly decreased while he was in the
hospital. His mentation returned to baseline.
Patient is medically stable and cleared by GI for discharge. He needs to follow-up with GI in the office. He states he will follow-up with GI at [place]. He needs a repeat BMP in 1 week with his primary care doctor or his oncologist at [place].
Disposition: Home self-care
Discharge planning: Required 40 minutes
Discharge Plan
-
Patient Disposition: Home (Routine Discharge)
Discharge Diagnosis/Procedures: Acute blood loss anemia, duodenal ulcer, stage IV lung cancer, confusion, hyponatremia, chronic pain with opioid dependency
Condition: Fair
Diet: Regular and Supplements
Additional Diets: Please take Ensure or boost or protein supplement of your choice twice a day
Activity: As tolerated
Blood Work: BMP in 1 week with either your doctor at [place] or your primary care doctor
Activity Restrictions/Additional Instructions:
Please avoid all hcrm-fpx-thohsie aspirin or NSAID medications such as ibuprofen, naproxen, Aleve, Motrin, Advil.
These medications may cause your ulcer to bleed.
Please follow-up with your oncologist and the GI doctor at [place].
Please also follow-up with your primary care doctor in 1 week.
Referrals:
NONE,* [Family Provider] -
Prescriptions:
New
pantoprazole 40 mg Tablet,Delayed Release (Dr/Ec)
40 mg PO BID Qty: 60 0RF
Continued
sennosides [senna] 8.6 mg Tablet
17.2 mg PO BID
Patient Comments:
Cannot take past dinner d/t nausea/vomiting while taking pill
oxycodone 15 mg tablet
30 mg PO Q4HPRN PRN (Reason: severe pains)
Patient Comments:
Patient states he takes 1-2 tablets as needed every 4 hours
hydrocortisone 20 mg Tablet
40 mg PO DAILY
lactulose 10 gram/15 mL Solution
10 g PO DAILYPRN PRN (Reason: constipation)
pregabalin [Lyrica] 50 mg Capsule
50 mg PO BIDPRN PRN (Reason: severe pain)
magnesium oxide 400 mg magnesium Tablet
400 mg PO BID
Rybrevant 50 mg/mL Solution
7,500 mg IV Q3W
testosterone 50 mg/mL Solution
50 mg IM FR
methadone 10 mg Tablet
20 mg PO Daily
methadone 10 mg Tablet
10 mg PO HS
hydrocortisone 20 mg Tablet
20 mg PO QPM Qty: 0 0RF
Changed
acetaminophen [Tylenol] 325 mg Tablet
650 mg PO Q4HPRN PRN (Reason: mild pain) Qty: 0 0RF
Discharge Orders:
Discharge Patient (As Directed); Ordered 10/09/23
Ordered By: Ramone Olson
Discharge Date and Time
Discharge Date/Time: 10/09/23 15:18
--- NOTE | 2023-10-09 14:42 | CM ---
Reviewed the chart notes. Patient's spouse at bedside to transport patient home today. CM continues to be available to patient/family and is monitoring medical plan for needs at discharge.
Plan: Discharge to home today. No needs identified at this time.
[2023-10-09 15:05] VITALS: BP 133/83
--- NOTE | 2023-10-09 16:33 | CM ---
Reviewed the chart notes. Patient's spouse at bedside to transport the patient home today. CM continues to be available to patient/family and is monitoring medical plan for needs at discharge.
Plan: Discharge to home today with no additional needs being identified.
== END 2023-10-09 15:18 | disposition home or self-care (01) | DRG 383 ==
LOC: 2 NORTH 18:51
PROVIDERS: Hospitalist; Nurse Practitioner Gerontology; ADMITTING PHYSICIAN Hospitalist; ATTENDING PHYSICIAN Family Medicine; CONSULT PHYSICIAN Internal Medicine Gastroenterology; EMERGENCY PHYSICIAN Emergency Medicine
PROC: 30233N1 Transfusion of Nonautologous Red Blood Cells into Peripheral Vein, Percutaneous Approach (ICD-10-PCS; 2023-10-06)
PROC: 0DB98ZX Excision of Duodenum, Via Natural or Artificial Opening Endoscopic, Diagnostic (ICD-10-PCS; 2023-10-09)
DX: K26.9 Duodenal ulcer, unspecified as acute or chronic, without hemorrhage or perforation (principal); G92.8 Other toxic encephalopathy; D62 Acute posthemorrhagic anemia; E22.2 Syndrome of inappropriate secretion of antidiuretic hormone; C79.51 Secondary malignant neoplasm of bone; E27.40 Unspecified adrenocortical insufficiency; C34.90 Malignant neoplasm of unspecified part of unspecified bronchus or lung; F11.20 Opioid dependence, uncomplicated; K22.6 Gastro-esophageal laceration-hemorrhage syndrome; Z66 Do not resuscitate; D50.9 Iron deficiency anemia, unspecified; E86.0 Dehydration; R62.7 Adult failure to thrive; F17.210 Nicotine dependence, cigarettes, uncomplicated; K59.09 Other constipation; G89.3 Neoplasm related pain (acute) (chronic); E78.00 Pure hypercholesterolemia, unspecified; Y84.2 Radiological procedure and radiotherapy as the cause of abnormal reaction of the patient, or of later complication, without mention of misadventure at the time of the procedure
CPT/HCPCS: 88305; 36430; 71046; 80048; 80053; 81003; 82607; 82728; 82746; 83540; 83550; 83605; 83690; 83935; 84300; 85025; 85027; 85610; 85730; 86850; 86900; 86901; 86920; 93005; 96374; 96375; 99291; P9016

== ENCOUNTER 2023-12-12 21:52 | Inpatient (IN) | payer OTHER, SELFPAY ==
[2023-12-12 19:04] VITALS: BP 61/50
--- NOTE | 2023-12-12 19:12 | ED.GENMED ---
History of Present Illness
General
Chief Complaint: Seizure
Source: patient
Time Seen by Provider: 12/12/23 19:05
Travel History
Have you had any contact with someone who has COVID-19?: Unable to Answer
Do you have any symptoms of coronavirus? Fever > 100 degrees, chills, cough, shortness of breath, sore throat, loss of taste or smell, muscle aches, or headache?: Unable to Answer
History of Present Illness
History of Present Illness:
63-year-old male with known metastatic disease to the brain lungs spine adrenals presents from home via EMS where he receiving home hospice care. They presented here for seizures that have been ongoing all day. I am told family is en route.
Patient unable to provide any information.
Past History
Past History
ED Past Medical History: Cancer, HTN and Hypercholesterolemia
ED Past Surgical History: Other
Social History
Tobacco: Other
Alcohol: Other
Drug: None
Personal:
Living: with family
Employment: Other
Family History
Family History: Other
Phy Exam
Physical Exam
Physical Exam:
General: Cachectic appearing unresponsive male
HEENT: Normocephalic slight upward gaze pupils pinpoint bite truman on tongue
Heart: Regular no audible murmurs
Lungs: Slightly tachypneic
Extremities: No cyanosis
Neurologic exam: Does not follow commands responsive only to painful stimuli
Course
Orders/Labs/Results
Orders:
Orders
12/12/23 19:25
Lorazepam [Ativan] 2 mg .ROUTE .STK-MED ONE
12/12/23 19:27
Lorazepam [Ativan] 1 mg IV NOW STA
Vital Signs
Initial and Last Documented VS:
Initial Vital Signs
Temp Pulse Resp BP Pulse Ox
98.1 F 119 10 61/50 98
12/12/23 19:04 12/12/23 19:04 12/12/23 19:04 12/12/23 19:04 12/12/23 19:04
Last Documented Vital Signs
Temp Pulse Resp BP Pulse Ox
98.1 F 119 10 61/50 98
12/12/23 19:04 12/12/23 19:04 12/12/23 19:04 12/12/23 19:04 12/12/23 19:04
MDM/Problems Addressed
Differential Diagnosis Includes:
Patient presents with out of hospital DNR paperwork. He is from home on hospice with no metastatic disease having seizures. He is hypotensive here. He does have a Dilaudid NETWORK DEVELOPER pump.
*Critical Care Note
Total Time (30-74mins, 75-104mins- exclusive of procedures): Not Applicable
Update Note
Update Note:
and daughter now on room. Expectations and goals addressed. They realize end-of-life is imminent. They want him to go comfortably. Patient was given Ativan here as he had another seizure. Will continue to give Dilaudid. Will monitor. If
need be admit to inpatient hospice for comfort measures.
Reexamined patient. Still unresponsive. Family still in room. I suspect end-of-life is imminent. He was given Ativan here. Will admit to hospital for comfort measures only and inpatient hospice.
ED Attending Note
-
Portions of this chart may have been created with voice recognition software.� Occasional wrong word or��sound alike� substitutions may have occurred due to the inherent limitations of voice recognition software.
Discharge Plan
Departure
Patient Disposition: Admit
Date of Disposition: 12/12/23
Time of Disposition: 20:36
Admit to: Med/Surg
Presentation/result/management discussed w/ accepting MD/DO: Hospitalist
Discharge Problem:
Seizure
Referrals:
NONE,* [Family Provider] -
Interventions
Interventions:
*Risk Screen - Suicide Last Done: 12/12/23 19:04
*General Assessment Last Done: 12/12/23 19:04
*Neglect/Abuse Screening Last Done: 12/12/23 19:04
ED- Fall Risk Assessment Last Done: 12/12/23 19:30
*ED COVID-19 Vaccine History Last Done: 12/12/23 19:30
ED- Cardiac Assessment Last Done: 12/12/23 19:30
ED- Neurological Assessment Last Done: 12/12/23 19:30
ED- Pulmonary Assessment Last Done: 12/12/23 19:30
Discharge Date and Time
Print Language: ANGUILLAN
--- NOTE | 2023-12-12 19:25 | EDRN ---
Contacted Agatha ORR RN about pts R SQ port, pt arrives w it accessed and w an active infusion of pts dilaudid OFFICE SYSTEM ANALYST. Okay to use port per Agatha.
--- NOTE | 2023-12-12 19:26 | EDRN ---
Per Chinedu Yee okay to given Ativan even though hypersensitivity.
[2023-12-12] MEDS: ATIVAN 1 MG IV (19:30)
--- NOTE | 2023-12-12 19:30 | EDRN ---
Pt having tonic clonic seizure lasting approx 1 minute. Ativan given. and daughter at bedside. Emotional support provided.
--- NOTE | 2023-12-12 20:39 | PHANOTE ---
Med Rec Note:
Home medication list compiled from [facility] system per the Hospice Nurses at bedside.
[2023-12-12] MEDS: MORPHINE SULFATE 4 MG IV (21:12)
--- NOTE | 2023-12-12 21:31 | HPS.HSE ---
Family Physician
-
Family Physician: * NONE
Chief Complaint
-
seizure
History of Present Illness
63 y/o M hx of stage 4 lung cancer with known brain, adrenal and osseous mets s/p chemo/XRT, HTN, HLD, COPD presents to ER from home hospice for recurrent seizures all day. Family was unable to manage at home and brought patient to ER for end of
life care. Patient is currently unresponsive.
in ER, he was given Ativan, Morphine. Family opted for comfort measures and inpatient stay vs return to home hospice given imminent nature of his illness.
Medical History
Past Medical History
Past Medical History: Reports Other (hx of stage 4 lung cancer with known brain, adrenal and osseous mets s/p chemo/XRT, HTN, HLD, COPD)
Past Surgical History: Reports None
Social History
Tobacco: Former Smoker
Alcohol: None
Drug: None
Personal:
Living: With Family
Family History
Family History: Not pertinent
Allergies / Home Medications
Allergies reflects when Allergies were last updated in [employer].
Home Medications with original date entered in [employer]
Allergy/Medication List:
Allergies
Allergy/AdvReac Type Severity Reaction Status Date / Time
Iodinated Contrast Media Allergy Unknown Verified 12/12/23 19:13
lorazepam [From Ativan] Allergy Unknown Verified 12/12/23 19:13
Home Medications
haloperidol lactate 2 mg/mL oral concentrate 2 mg PO Q3H PRN agitation/nausea 12/12/23
hyoscyamine sulfate 0.125 mg sublingual tablet 0.125 mg PO Q4H PRN increased secretions 12/12/23
methadone 10 mg/mL oral concentrate (Methadone Intensol) 20 mg PO Q8H 12/12/23
morphine concentrate 20 mg/mL oral syringe (FOR ORAL USE ONLY) 20 mg PO Q3H PRN difficulty breathing/mod-severe pain 12/12/23
Review of Systems
-
Unable to obtain full review of systems at this time due to: Acuity
Physical Exam
Vital Signs
Vital Signs
Temp Pulse Resp BP Pulse Ox
98.1 F 119 10 61/50 98
12/12/23 19:04 12/12/23 19:04 12/12/23 19:04 12/12/23 19:04 12/12/23 19:04
Physical Exam
General: Respiratory Distress and Appears Chronically Ill
HEENT: NormoCephalic
Respiratory: Clear; No Wheezes or Rales
Cardiac: S1/S2 and Regular Rhythm
GI: Soft
Neuro: Other (unresponsive)
Impression/Plan
-
Assessment:
Seizure disorder
hx of stage 4 lung cancer with known brain, adrenal and osseous mets s/p chemo/XRT,
Essential HTN
HLD
COPD
Plan:
Long discussion with /daughter. Patient currently on home hospice but they cannot manage his care in light of seizures. Patient to be admitted for comfort measures. Start comfort care protocol and add prn Morphine/Ativan.
--- NOTE | 2023-12-12 22:05 | EDRN ---
Pt arrived to ER w Dilaudid FACETOR pump infusing. Now that pt has been admitted to , pump has been stopped by this RN witnessed by Silvina Montes De Oca RN, witnessed waste of 48ml of Dilaudid. Tyron ( admitting provider) has entered new orders for
hospice medications, Ahmed aware and okay with FACETOR pump being stopped and wasted, FACETOR pump turned off and placed in pts bag. This Dilaudid FACETOR pump was initiated and belongs to [facility]. Marina Ng, subassembly supervisor, aware and agrees with
this plan. executive admin, nursing subassembly supervisor and Tyron all aware of medication waste.
[2023-12-12 23:00] VITALS: BP 88/52; BMI 17.2
--- NOTE | 2023-12-13 00:06 | PTCARENOTE ---
Received pt from ED into 2121. Pt is unresponsive, tachycardic HR 113, BP 88/52, pox 96 on RA. Pt appears to be resting comfortably, safe environment maintained
--- NOTE | 2023-12-13 03:15 | DOWNTIME ---
There was a [employer]er Downtime on 12/12/2023 from 0100 to 12/13/2023 at 0300. Downtime documentation of patient's care, including medication administrations, has been reconciled in the electronic record per guidelines. Refer to the
patient's paper chart under the miscellaneous tab to see printed paper medication records and downtime forms.
[2023-12-13] MEDS: MORPHINE SULFATE 2 MG IV ×6 (06:40→18:03)
[2023-12-13 07:05] VITALS: BP 83/49
[2023-12-13] MEDS: FLUSH (NSS) 2 FLUSH IV ×5 (08:50→15:55)
[2023-12-13] MEDS: ATIVAN 2 MG IV ×3 (10:39→18:03)
--- NOTE | 2023-12-13 11:47 | CM ---
Met with patient and family. Patient with metastatic cancer and is unresponsive at this time. Patient was on hospice at home and was having recurrent seizures that family could not manage so they brought him to the ER. They prefer he stay in the
hospital on comfort measures. MD visiting at this time and will determine if inpatient hospice is necessary. Patient peaceful and does not appear in distress. Will continue to follow and remain available to family.
--- NOTE | 2023-12-13 12:23 | W.PN.HOSP.TC ---
Today's Communication/Plan
-
Comfort measures
Assessment / Plan
Assessment / Plan
Gen-unarousable, NAD
HEENT-NC, AT, anicteric, clear oral mm
Neck-supple
CV-reg, no M, +S1/S2
Lungs-clear B/L
Abd-soft, NT, ND
Ext-no edema
Musculoskeletal-no cyanosis, clubbing
Skin-warm and dry
End-of-life care -continue comfort measures. Transition to morphine infusion per protocol. Discussed with RN. Continue as needed benzodiazepines. Patient expected to pass in the hospital.
Metastatic lung cancer
New onset seizures -likely due to metastatic lung cancer.
Essential hypertension
COPD
DNR
Family updated at the bedside.
Anticipated Discharge: Within 24 hours
Subjective/Interval History
-
Date of Service: December 13, 2023
Patient seen and examined. Family at the bedside. He looks comfortable, remains unarousable.
Objective Data
-
Vital Signs:
Vital Signs
Temp Pulse Resp BP Pulse Ox
97.1 F 112 20 83/49 97
12/13/23 07:05 12/13/23 07:05 12/13/23 07:05 12/13/23 07:05 12/13/23 07:05
Review of Systems
-
Unable to obtain full review of systems at this time due to: Acuity
[2023-12-13] MEDS: ROBINUL 0.200000000000000011 MG IV (18:03)
[2023-12-13] MEDS: NSS (PRESERVATIVE FREE) 1 ML IV (18:04)
--- NOTE | 2023-12-13 18:12 | PTCARENOTE ---
pt continues on comfort measures, required Morphine and Ativan doses throughout shift, family at bedside.
--- NOTE | 2023-12-13 19:37 | W.PN.DEATH ---
Pronouncement of
-
Called to see patient to pronounce.
No spontaneous heart tones or respirations noted.
Patient not responsive to verbal stimuli.
Patient is pronounced .
Time of : 19:31
Date of : 12/13/23
Cause of : Metastatic lung cancer
Seizures
Chronic obstructive pulmonary disease
Family Notified: Yes (multiple family members at bedside)
--- NOTE | 2023-12-13 19:37 | W.PN.UPDATE ---
Update Note
Progress Note Update
At patient bedside to pronounce. Multiple family members present and grieving appropriately. Answered all questions effectively. Pronounced patient at 1931. note completed. certificate completed. Patient appears to have been comfortable
at passing. Care team updated.
--- NOTE | 2023-12-14 09:14 | CM ---
Patient on 12/13/23. Pronounced @ 7:31PM.
== END 2023-12-13 22:02 | disposition expired | DRG 951 ==
LOC: 2 NORTH 21:52
PROVIDERS: ADMITTING PHYSICIAN Internal Medicine; ATTENDING PHYSICIAN Hospitalist; EMERGENCY PHYSICIAN Emergency Medicine
DX: Z51.5 Encounter for palliative care (principal); C34.90 Malignant neoplasm of unspecified part of unspecified bronchus or lung; C79.31 Secondary malignant neoplasm of brain; Z87.891 Personal history of nicotine dependence; G40.909 Epilepsy, unspecified, not intractable, without status epilepticus; J44.9 Chronic obstructive pulmonary disease, unspecified; I10 Essential (primary) hypertension; Z66 Do not resuscitate
CPT/HCPCS: 96374; 96375; 99285